=== PATIENT | female | born 1945 | race Caucasian/White ===

== ENCOUNTER → 2018-12-18 | Outpatient (CLI) | payer MEDICARE ==
[2018-12-18 13:56] VITALS: BP 153/56
== END | disposition home or self-care (01) ==
LOC: WHH 08:28
PROVIDERS: ATTEND Podiatrist Foot & Ankle Surgery
DX: L89.899 Pressure ulcer of other site, unspecified stage (principal); L97.521 Non-pressure chronic ulcer of other part of left foot limited to breakdown of skin; L97.421 Non-pressure chronic ulcer of left heel and midfoot limited to breakdown of skin; M06.9 Rheumatoid arthritis, unspecified; I73.9 Peripheral vascular disease, unspecified
CPT/HCPCS: A4450; A6022; G0463

== ENCOUNTER → 2018-12-25 | Outpatient (CLI) | payer MEDICARE ==
[2018-12-25 14:02] VITALS: BP 131/58
== END | disposition home or self-care (01) ==
LOC: WHH 08:00
PROVIDERS: ATTEND Podiatrist Foot & Ankle Surgery
DX: L97.511 Non-pressure chronic ulcer of other part of right foot limited to breakdown of skin (principal); L97.521 Non-pressure chronic ulcer of other part of left foot limited to breakdown of skin; L97.421 Non-pressure chronic ulcer of left heel and midfoot limited to breakdown of skin; I73.9 Peripheral vascular disease, unspecified; M06.9 Rheumatoid arthritis, unspecified
CPT/HCPCS: 15275; A6196; A6207; Q4133

== ENCOUNTER → 2019-01-01 | Outpatient (CLI) | payer MEDICARE ==
[2019-01-01 14:24] VITALS: BP 183/64
== END | disposition home or self-care (01) ==
LOC: WHH 08:30
PROVIDERS: ATTEND Podiatrist Foot & Ankle Surgery
DX: L97.511 Non-pressure chronic ulcer of other part of right foot limited to breakdown of skin (principal); L97.521 Non-pressure chronic ulcer of other part of left foot limited to breakdown of skin; L97.421 Non-pressure chronic ulcer of left heel and midfoot limited to breakdown of skin; I73.9 Peripheral vascular disease, unspecified; M06.9 Rheumatoid arthritis, unspecified
CPT/HCPCS: 15275; 87070; 87077; 87186; A6196; A6207; Q4133

== ENCOUNTER → 2019-01-08 | Outpatient (CLI) | payer MEDICARE ==
[2019-01-08 13:51] VITALS: BP 163/70
== END | disposition home or self-care (01) ==
LOC: WHH 08:30
PROVIDERS: ATTEND Podiatrist Foot & Ankle Surgery
DX: L97.511 Non-pressure chronic ulcer of other part of right foot limited to breakdown of skin (principal); L97.521 Non-pressure chronic ulcer of other part of left foot limited to breakdown of skin; L97.421 Non-pressure chronic ulcer of left heel and midfoot limited to breakdown of skin; I73.9 Peripheral vascular disease, unspecified; M06.9 Rheumatoid arthritis, unspecified
CPT/HCPCS: 15275; A6197; A6207; Q4133

== ENCOUNTER → 2019-01-15 | Outpatient (CLI) | payer MEDICARE ==
[~2019-01-15] MED LIST: LIDOCAINE HCL 2% JELLY 5 ML ONE
[2019-01-15 13:48] VITALS: BP 170/69
== END | disposition home or self-care (01) ==
LOC: WHH 08:30
PROVIDERS: ATTEND Podiatrist Foot & Ankle Surgery
DX: L97.511 Non-pressure chronic ulcer of other part of right foot limited to breakdown of skin (principal); L97.521 Non-pressure chronic ulcer of other part of left foot limited to breakdown of skin; L97.421 Non-pressure chronic ulcer of left heel and midfoot limited to breakdown of skin; I73.9 Peripheral vascular disease, unspecified; M06.9 Rheumatoid arthritis, unspecified
CPT/HCPCS: 15275; A6209; Q4133